=== PATIENT | female | born 1970 | race Caucasian/White ===

== ENCOUNTER → 2019-06-05 | Day surgery (SDC) | payer OTHER ==
[~2019-06-05] MED LIST: ALPR0.254 PO; FERR236T2 PO; IV RINGERS,LACTATED 1000ML 1,000 ML IV ONE; LIDOCAINE 2% PF 5 ML VIAL. ONE; MULT-496 PO; PROPOFOL 40 ML IV ONE
--- NOTE | 2019-06-05 09:22 | HP ---
ADMIT DATE: 06/05/2019 REASON FOR ADMISSION: Family history of colon cancer. HISTORY OF PRESENT ILLNESS: This is a 48-year-old female with past medical history just significant for anxiety, is seen for a screening colon exam. Family history is positive for colon cancer with her father who was diagnosed in his mid 60s. Her last colonoscopy done in 2004 was unrevealing at that time. There has been no change in bowel habits. No diarrhea or constipation. Weight and appetite are stable. There has been no bleeding. She is otherwise without additional complaints. PAST MEDICAL HISTORY: Significant for anxiety. MEDICATIONS: Include alprazolam, ferrous gluconate. ALLERGIES: ACETAMINOPHEN, CEPHALEXIN, CODEINE, DICYCLOMINE, HYDROCODONE, MIDAZOLAM, MORPHINE, HYOSCYAMINE. FAMILY HISTORY: Significant for breast cancer with grandmother, colon cancer with her father, diabetes in her sister, hypertension with multiple family members. SOCIAL HISTORY: She is occasional drinker, former smoker. PAST SURGICAL HISTORY: Status post cholecystectomy. REVIEW OF SYSTEMS: Per records. PHYSICAL EXAMINATION: GENERAL: Reveals a well-nourished, well-developed female. VITAL SIGNS: Temperature is 99.1, pulse 69, respirations 20. LUNGS: Clear. CARDIOVASCULAR: Reveals S1, S2 without S3, S4 or appreciable murmur. ABDOMEN: Reveals soft abdomen, normal bowel sounds, without appreciable hepatosplenomegaly. EXTREMITIES: Reveal no cyanosis, clubbing, or edema. IMPRESSION AND PLAN: Colorectal screening with positive family history is warranted at this time. Risks and benefits of procedure including risk of hemorrhage and perforation during the operation have been discussed with the patient who is willing to proceed. MEENA MIDDLETON MD DR: JAVIER/ena JOB#: [id number] / [id number]
[2019-06-05 09:44] VITALS: BP 118/64
--- NOTE | 2019-06-08 15:07 | PATHOLOGY ---
[facility] Accession Number: [id number] . 01 Material submitted: . colon - SIGMOID POLYP. Modifiers: sigmoid . 01 Clinical history: . Screening colonoscopy. . 02 Diagnosis: Colon biopsy, sigmoid polyp: - Hyperplastic polyp. ([facility] 06/08/2019) [facility] 06/08/2019 1210 Local . 02 Comment: There are no adenomatous changes or evidence of malignancy. ([facility] 06/08/2019) . 02 Electronically signed: . Behzad Olmos MD, Pathologist NPI- [id number] . 01 Gross description: . Received in formalin labeled "Justinldarnell, Thuy, sigmoid polyp" is a 0.5 x 0.4 x 0.2 cm fragment of colmenares-brown mucosa. The specimen is submitted in A1. ([facility]; 06/07/2019) PSYCHIATRIC/PSYCHIATRIC 06/07/2019 1115 Local . 02 Pathologist provided ICD-10: K63.5 . 02 CPT . 412131 Specimen Comment: A courtesy copy of this report has been sent to [phone], [phone] Specimen Comment: [id number] Specimen Comment: Report sent to / DR CHAMBERS Performed at: 01 [facility] [address], [place], [place] [id number] MD Lamont Goodson MD Phone: [phone] Performed at: 02 [facility] [address] [place], [place] [id number] MD Behzad Olmos MD Phone: [phone]
== END ==
LOC: SURG 08:05
PROVIDERS: ATTEND Internal Medicine Gastroenterology
DX: Z12.11 Encounter for screening for malignant neoplasm of colon (principal); K63.5 Polyp of colon; F41.9 Anxiety disorder, unspecified; Z80.0 Family history of malignant neoplasm of digestive organs; Z88.6 Allergy status to analgesic agent; Z88.1 Allergy status to other antibiotic agents; Z88.5 Allergy status to narcotic agent; Z88.8 Allergy status to other drugs, medicaments and biological substances; Z87.891 Personal history of nicotine dependence; Z72.89 Other problems related to lifestyle
CPT/HCPCS: 45385; 88305; J2001; J2704; 45380